=== PATIENT | female | born 1965 | race Caucasian/White ===

== ENCOUNTER 2017-06-30 07:10 | Inpatient (IN) | payer OTHER ==
[~2017-06-30] VITALS: Ht 162.6 cm; Wt 54.4 kg
[2017-06-30] MEDS ORDERED: IBUPROFEN 400 MG TABLET PO PRN (11:30)
[2017-06-30] MEDS ORDERED: LOPERAMIDE HCL 2 MG CAPSULE PO PRN ×2 (11:30)
[2017-06-30] MEDS ORDERED: diphenhydrAMINE 50 MG CAPSULE PO PRN (11:30)
[2017-06-30] MEDS ORDERED: ONDANSETRON ODT 4 MG TAB.RAPDIS SL PRN (11:30)
[2017-06-30] MEDS ORDERED: LORAZEPAM 2 MG/1 ML VIAL IM PRN (11:30)
[2017-06-30] MEDS ORDERED: ACETAMINOPHEN 325 MG TABLET PO PRN (11:30)
[2017-06-30] MEDS ORDERED: ONDANSETRON 4 MG/2 ML VIAL IM PRN (11:30)
[2017-06-30] MEDS ORDERED: LORAZEPAM 1 MG TABLET PO PRN ×2 (11:30)
[2017-06-30] MEDS ORDERED: MAG HYDROX/AL HYDROX/SIMETH 30 ML LIQUID UDC PO PRN (11:30)
[2017-06-30 12:00] VITALS: BP 131/90
--- NOTE | 2017-06-30 12:00 | NUR ---
Intake assessment; Patient is a 51 year old female AOX4, presented to [facility] to detoxify from ETOH. Patient flew in from [place] and arrived at intake office at approximately 1130. She is the primary source of information. Patient appears moderately intoxicated, patient appears hyper but easily retractible, patient is also cooperative. Patient reported allergies to penicillins and ibuprofen. Patient's current vital signs are as follows; BP 131/90, temperature 98.4, HR 90, Spo2 98%, denies pain at this time. Patient was educated regarding unit protocols and policies. Patient verbalized understanding. Will continue with further assessment when patient is up on the unit.
[2017-06-30] MEDS ORDERED: LEVO100T PO (12:06)
[2017-06-30] MEDS ORDERED: LIOT5TAB7 PO (12:06)
[2017-06-30 12:27] LABS: *AMPHETAMINE, URINE NEGATIVE (NEGATIVE); *BARBITURATE, URINE NEGATIVE (NEGATIVE); *CANNABINOID, URINE NEGATIVE (NEGATIVE); *COCCAINE, URINE NEGATIVE (NEGATIVE); *OPIATE, URINE NEGATIVE (NEGATIVE); *PHENCYCLIDINE SCREEN,URINE NEGATIVE (NEGATIVE)
[2017-06-30] MEDS ORDERED: THIAMINE HCL 200 MG/2 ML VIAL IM ONE (12:28)
[2017-06-30] MEDS ORDERED: [UNRECOGNIZED DRUG - OTHER] PO (12:28)
[2017-06-30 12:30] LABS: BILIRUBIN,TOTAL 0.6 mg/dL (0.2-1.0); CREATININE 0.8 mg/dL (0.6-1.3); MAGNESIUM 1.8 mg/dL (1.8-2.4); POTASSIUM 4.2 mmol/L (3.5-5.1); TOTAL PROTEIN, SERUM 8.5 g/dL (6.4-8.2)
[2017-06-30 12:43] LABS: BASOPHILS # (AUTO) 0.1 K/uL (0.0-8.0); BASOPHILS % (AUTO) 0.9 % (0.0-2.0); EOSINOPHILS # (AUTO) 0.1 K/uL (0.0-0.7); EOSINOPHILS % (AUTO) 0.9 % (0.0-7.0); HEMATOCRIT 44.4 % (37-47); HEMOGLOBIN 15.2 G/DL (12.0-16.0); LYMPHOCYTES # (AUTO) 1.6 K/UL (0.8-4.8); LYMPHOCYTES % (AUTO) 26.6 % (20.5-51.5); MEAN CORPUSCULAR HEMOGLOBIN 32.5 UUG (27.0-31.0); MEAN CORPUSCULAR HGB CONC 34 g/dL (32.0-37.0); MONOCYTES # (AUTO) 0.4 K/UL (0.1-1.30); MONOCYTES % (AUTO) 6.2 % (0.0-11.0); NEUTROPHILS % (AUTO) 65.4 % (38.5-71.5); PLATELET COUNT (AUTO) 254 K/UL (150-450); RED BLOOD CELL COUNT(AUTO) 4.67 MIL/UL (4.2-5.4); WHITE BLOOD COUNT (AUTO) 6.2 K/UL (4.0-11.2)
[2017-06-30 12:44] LABS: *URINE HCG, QUAL NEGATIVE (NEGATIVE)
--- NOTE | 2017-06-30 14:00 | NUR ---
Admission note; Patient is a 51 year old female AOX4, presented to [facility] to detoxify from ETOH. Patient flew in from [place] and arrived at intake office at approximately 1130. She is the primary source of information. Patient appears moderately intoxicated, patient appears hyper but easily redirected, patient is also cooperative. Patient reported allergies to penicillins and ibuprofen. Patient's current vital signs are as follows; BP 131/90, temperature 98.4, HR 90, Spo2 98%, denies pain at this time. Urine provided by patient for drug screen and thorough body and belonging check done along with COMMERCIAL LINES MANAGER. Discussed substance use history. Patient started drinking ETOH when she was 20 years old then progressed to daily consumption when she was 40 y/o. At this rate she is currently drinking 500ml to 1000ml of Vodka on a daily basis, last consumed today prior to admission. Medical and psych history discussed. Patient reported history of SVT, VT, hypothyroidism, eating disorder and anxiety. Patient reported that she just recently (more than 1 month ago) had a loop phototypesetting equipment monitor implanted on her left chest area, site is intact without any s/s of infection, MD is aware. Patient reported allergies to PCN and ibuprofen. Patient denies any history of seizures. Patient currently lives with her . she has never been to detox before. Her primary care physician is Dr. Chelsy Regalado. Current CIWA score is 3. Skin check done with no significant findings. Patient was seen and assessed by MD. Safety measures in place. Will closely monitor patient.
[2017-06-30 15:25] LABS: THYROID STIMULATING HORMONE 1.31 mIU/mL (0.358-3.740)
[2017-06-30 16:30] VITALS: BP 162/108
[2017-06-30] MEDS: LORAZEPAM 1 MG TABLET PO SCH ×2 (16:50→20:51)
[2017-06-30] MEDS: CLONIDINE HCL 0.1 MG TABLET PO PRN (16:51)
--- NOTE | 2017-06-30 16:51 | NUR ---
PRN medication; Patient's BP is elevated, 162/108 and HR of 103. Patient is also complaining of nausea. PRN Clonidine 0.1mg PO given for elevated BP and Zofran 4mg ODT for nausea. Will closely monitor patient. MD notified regarding patient's current condition.
[2017-06-30] MEDS ORDERED: METOPROLOL TARTRATE 50 MG TABLET PO ONE (17:00)
[2017-06-30] MEDS ORDERED: hydrALAZINE HCL 50 MG TABLET PO PRN (17:15)
--- NOTE | 2017-06-30 17:51 | NUR ---
Re-assessment; Patient denies nausea at this time. Patient's current BP is 135/86, HR 81. PRN medications are effective.
--- NOTE | 2017-06-30 18:42 | NUR ---
START OF SHIFT NOTE: Patient is a 51 year old female admitted to [facility] on 06/30/2017 for Alcohol dependence. Patient continues ordered 5 Day Ativan Taper which tolerated well without ASE. Patient remains compliant with treatment, medications, and diet regime. Patient reports Allergy to Penicillin and Ibuprofen. Patient is on Full Code, Regular Diet, Fall and Seizures Precautions. Patient denied history of withdrawal-induced seizures. Past Medical History: Anxiety, SVT and VT: cardiac loop monitor at bedside, Hypothyroidism, Eating disorder, Substance use disorder. Past Surgical history: Hysterectomy. History of Substance Use: "ETOH/Alcohol PO: Vodka 500-1,000 ml every day since 2014 at this rate. Last used 3 glasses of Vodka on 06/30/17". Patient reports - "first time in detox". Upon endorsement, patient is in her room alert and oriented x4 with stable gait. Speech is clear and soft. VSWNL, CIWA 7. Respirations are even and unlabored. Lungs Sounds are clear throughout. Patient denies cough, chest pain, and SOB. Patient reports history of SVT and VT: cardiac loop monitor at bedside. ECG ordered. Abdomen is soft, non-tender. Bowel Sounds are active in all four quadrants. Skin is intact, warm and dry to touch. Encouraged to fluids intake as tolerated. Encouraged to attend groups activities. All needs met. Safety measures in place: Call light within reach, bed is locked and in the lowest position, padded bed rails up bilaterally. Patient endorsed by outgoing day shift nurse. Report received.
--- NOTE | 2017-06-30 18:42 | NUR ---
End of shift note; Patient is AOX4. Patient was started on Ativan taper at 1700. Patient attended group therapy and activities. Patient remained compliant with treatment plan and medication regime. Medications were effective in reducing withdrawal symptoms. All safety measures secured. Met all needs.
[2017-06-30 20:00] VITALS: BP 116/87
[2017-07-01] VITALS: BP 114/81
[2017-07-01 04:00] VITALS: BP 114/81
--- NOTE | 2017-07-01 07:16 | NUR ---
END OF SHIFT NOTE: Patient is a 51 year old female admitted to [facility] on 06/30/2017 for Alcohol dependence. Patient continues ordered 5 Day Ativan Taper which tolerated well without ASE. Patient remains compliant with treatment, medications, and diet regime. Patient reports Allergy to Penicillin and Ibuprofen. Patient is on Full Code, Regular Diet, Fall and Seizures Precautions. Patient denied history of withdrawal-induced seizures. Past Medical History: Anxiety, SVT and VT: cardiac loop monitor at bedside, Hypothyroidism, Eating disorder, Substance use disorder. Past Surgical history: Hysterectomy. History of Substance Use: "ETOH/Alcohol PO: Vodka 500-1,000 ml every day since 2014 at this rate. Last used 3 glasses of Vodka on 06/30/17". Patient reports - "first time in detox. Last CIWA 5 . Last VS @0400: T 98.3, BP 114/81, HR 70, RA O2SAT 99%, RR 18, pain level "0/10". Respirations are even and unlabored. Lungs Sounds are clear throughout. Patient denies cough, chest pain, and SOB. Patient reports history of SVT and VT: cardiac loop monitor at bedside. ECG done as ordered.. Abdomen is soft, non-tender. Bowel Sounds are active in all four quadrants. Skin is intact, warm and dry to touch. Patient slept 8 hours, intake 1,535 ml, voided x3. No PRN Medications administrated during shift mechanic. Encouraged fluids intake as tolerated. Encouraged to attend groups activities. All needs met. Safety measures on place: Call light within reach, bed in lowest position and locked, padded rails up bilaterally. Patient endorsed to day shift nurse. Report given.
[2017-07-01 08:44] VITALS: BP 115/87
[2017-07-01] MEDS ORDERED: TUBERCULIN,PURIF.PROT.DERIV. 5 TU/0.1 ML TEST ID ONE (09:00)
[2017-07-01] MEDS: MULTIVITAMINS,THERAPEUTIC TABLET PO SCH (09:20)
[2017-07-01] MEDS: THIAMINE HCL 100 MG TABLET PO SCH (09:20)
[2017-07-01] MEDS: FOLIC ACID 1 MG TABLET PO SCH (09:21)
--- NOTE | 2017-07-01 09:25 | NUR ---
Administration of tuberculin skin test at this time subcutaneously in the left upper arm. Addendum: 07/01/17 at 0941 by REESE KING RN Amended: Links added.
[2017-07-01] MEDS: LORAZEPAM 1 MG TABLET PO SCH ×3 (09:31→21:22)
[2017-07-01 10:07] LABS: HEPATITIS B SURFACE AG Negative (Negative)
[2017-07-01 12:51] VITALS: BP 135/89
--- NOTE | 2017-07-01 13:17 | NUR ---
Therapist prompted client to attend group today. Client agreed to attend group,
--- NOTE | 2017-07-01 15:43 | NUR ---
Patient says, "I feel drunk on this stuff," as marketing underwriter passed medication (Ativan). "I want to go out and talk to people. Can I go to the patio? I don't smoke." Crystalizer Tender conferred with unit nurses and unit nurses note patient was on no restrictions. Patient went out to the patio afterward.
[2017-07-01] MEDS: PATIENT MAY USE OWN MED- MD OK PO SCH ×2 (16:43→16:44)
[2017-07-01 17:43] VITALS: BP 122/87
--- NOTE | 2017-07-01 19:05 | NUR ---
Handoff report to night nurse .
--- NOTE | 2017-07-01 19:30 | NUR ---
Start of Shift Patient is a 51 year old female admitted to [facility] on 06-30-17 for ETOH detox. She is a full code on a reular diet with allergies to PCN and Ibuprofen. Patient is on a five day ativan taper. She is on fall and seizure precautions. PMH of SVT, Hypothyroidism, Eating disorder, and anxiety. Skin is intact. LAst CIWA reported as a 0 by day shift nurse. Vital signs are stable. Safety precautions in place. BEd locked and in lowest position with 2 side rails up for safety.
[2017-07-01 20:00] VITALS: BP 121/92
[2017-07-02] VITALS: BP 128/96
[2017-07-02 04:00] VITALS: BP 124/79
--- NOTE | 2017-07-02 04:00 | NUR ---
CIWA deferred CIWA deferred at 0400 due to sleep.
--- NOTE | 2017-07-02 06:48 | NUR ---
End of shift Patient is a 51 year old female admitted to [facility] on 06-30-17 for ETOH detox. She is a full code on a regular diet with allergies to PCN and Ibuprofen. Patient is on a five day ativan taper. She is on fall and seizure precautions. PMH of SVT, Hypothyroidism, Eating disorder, and anxiety. Patient with implanted cardiac loop monitor. Skin is intact. Vital signs are stable. Safety precautions in place. Patient VS at 2000 BP 121/92, P 86, R 16, SPO2 98% on RA, T 98.6. CIWA 2. Vital signs at 0000 BP 128/96, P 85, R 16, SPO2 99% on RA, T 98.1. CIWA 2. Vital signs at 0400: BP 124/79, P 82, R 14, SPO2 99% on RA, T 98.3. CIWA deferred for sleep. Slept a total of 8 hours. Intake 1360 ml, output 4 voids. Patient with no noted physical complaints. Bed locked and in lowest position with 2 side rails up for safety. Report given to AM nurse.
--- NOTE | 2017-07-02 07:00 | NUR ---
Start of Shift Report from the night nurse: ptis a 51 y/o female here for Etoh r/t 500-1000mg of vodka daily for 2 years; 5 day Ativan taper ordered. Pt is a full code, regular diet, allergic to PCN and Ibuprofen, fall and seizure precautions ordered. HHx: SVT & VT with AICD implanted on UL Chest with a loop monitor at the bedside, Hypothyroidism, eating d/o, anxiety. V/S stable. EKG done on admission with NSR. This is the first time doing detox. Skin is intact. No PRN Medications given last night. No new orders or abnormal labs endorsed to me. Last CIWA 2. Pt is in room asleep. Will cont. to monitor the pt.
[2017-07-02 08:00] VITALS: BP 135/93
[2017-07-02] MEDS: THIAMINE HCL 100 MG TABLET PO SCH (08:29)
[2017-07-02] MEDS: FOLIC ACID 1 MG TABLET PO SCH (08:29)
[2017-07-02] MEDS: MULTIVITAMINS,THERAPEUTIC TABLET PO SCH (08:29)
[2017-07-02] MEDS: PATIENT MAY USE OWN MED- MD OK PO SCH ×2 (08:30)
[2017-07-02] MEDS ORDERED: LORAZEPAM 1 MG TABLET PO SCH ×2 (09:00→21:00)
[2017-07-02 12:00] VITALS: BP 126/82
[2017-07-02] MEDS: LORAZEPAM 1 MG TABLET PO SCH ×2 (13:29→16:53)
[2017-07-02] MEDS: CLONIDINE HCL 0.1 MG TABLET PO PRN (14:57)
--- NOTE | 2017-07-02 14:58 | NUR ---
PRN Medication Administration Pt is in room with tremors and c/o anxiety, pt denies chest pain, BP 134/84 HR 89; PRN CLonidine 0.1mg given as ordered. Will reassess in 1H. Addendum: 07/02/17 at 1747 by IMANI BRIONES RN Initial dose so medication actions and SE's discussed with the pt and printed education material given.
[2017-07-02 16:00] VITALS: BP 121/87
--- NOTE | 2017-07-02 16:00 | NUR ---
Reassessment Pt is resting in bed and watching a football game and states that the anxiety and tremors have decreased, BP 121/87 HR 84; PRN Clonidine is effective. Will cont. to monitor the pt.
--- NOTE | 2017-07-02 19:02 | NUR ---
End of Shift Report to the night nurse: pt is a 51 y/o female here for Etoh r/t 500-1000mg of vodka daily for 2 years; 5 day Ativan taper ordered. Pt is a full code, regular diet, allergic to PCN and Ibuprofen, fall and seizure precautions ordered. HHx: SVT & VT with AICD implanted on UL Chest with a loop monitor at the bedside, Hypothyroidism, eating d/o, anxiety. V/S stable. EKG done on admission with NSR. This is the first time doing detox. Pt denies chest pain and no SOB during my shift, V/S stable. PRN Clonidine 0.1mg given today for anxiety and was effective with stable BP and HR. New Order for PRN Vistaril with none given during my shift, education handouts given. Pt denies dysuria. No BM during my shift with last BM yesterday. No abnormal labs during my shift. Pt attended group therapy and activities today. Last CIWA 8.
--- NOTE | 2017-07-02 19:15 | NUR ---
Start of shift note Received report from day shift nurse. Pt is a 51 yo female, A+Ox4, presenting to [facility] for ETOH dependence. Pt has Allergies to PCN and ibuprofen, is on Full code status, and on Regular diet. Pt is on Fall and Seizure precautions. Pt has HX of SVT, VT, Hypothyroidism, eating disorder, and anxiety. Pt is on 5 day Ativan taper, tolerated well. No s/s of distress noted at this time. Respirations even and unlabored. Will continue to monitor.
[2017-07-02 20:45] VITALS: BP 133/94
[2017-07-03 00:35] VITALS: BP 131/90
[2017-07-03 04:35] VITALS: BP 124/88
--- NOTE | 2017-07-03 06:55 | NUR ---
End of shift note Pt is a 51 yo female, A+Ox4, presenting to [facility] for ETOH dependence. Pt has Allergies to PCN and ibuprofen, is on Full code status, and on Regular diet. Pt is on Fall and Seizure precautions. Pt has HX of SVT, VT, Hypothyroidism, eating disorder, and anxiety. Pt is on 5 day Ativan taper, tolerated well. Pt slept fora total of 9 HRS. Last CIWA: 2 @0400. No s/s of distress noted at this time. Respirations even and unlabored. Will endorse to day shift nurse.
--- NOTE | 2017-07-03 07:30 | NUR ---
START OF SHIFT Pt is a 51 yr old female, AA&Ox4. pt was admitted on 06/30/17 for ETOH Dependence and is on 5 day Ativan taper as ordered. Medication emre well. Received report from rn shift mgr nurse. No PRN's were given during the night. Pt slept for 9 hrs. Last CIWA score was 2 at 0400. Pt denies any anxiety or agitation at this time. Pt states, "I feel good so far" Skin is intact, warm and dry to touch. No tremors seen or felt. Pt denies any n/v. Safety precautions observed. Encouraged increase fluid intake. Call light is within reach. Will continue to monitor.
[2017-07-03 08:00] VITALS: BP 119/84
[2017-07-03] MEDS: LORAZEPAM 1 MG TABLET PO SCH ×3 (08:20→21:09)
[2017-07-03] MEDS: PATIENT MAY USE OWN MED- MD OK PO SCH ×2 (08:20)
[2017-07-03] MEDS: THIAMINE HCL 100 MG TABLET PO SCH (08:20)
[2017-07-03] MEDS: MULTIVITAMINS,THERAPEUTIC TABLET PO SCH (08:21)
[2017-07-03] MEDS: FOLIC ACID 1 MG TABLET PO SCH (08:21)
[2017-07-03 12:00] VITALS: BP 126/96
[2017-07-03] MEDS: CLONIDINE HCL 0.1 MG TABLET PO PRN (12:29)
--- NOTE | 2017-07-03 12:29 | NUR ---
PRN GIVEN Pt c/o increase anxiety. Clonidine 0.1mg PO PRN was given as ordered. Encouraged increase fluid intake. Will continue to monitor.
--- NOTE | 2017-07-03 13:30 | NUR ---
PRN RE-ASSESSMENT Clonidine 0.1mg PO PRN was effective. Pt denies any anxiety or agitation at this time. Will continue to monitor.
[2017-07-03 16:00] VITALS: BP 122/80
--- NOTE | 2017-07-03 19:02 | NUR ---
END OF SHIFT Pt is a 51 yr old female, AA&Ox4. pt was admitted on 06/30/17 for ETOH Dependence and is on 5 day Ativan taper as ordered. Medication emre well. Pt has been cooperative with medication regimen and plan of care. Pt attended group sessions. Pt received Clonidine PRN during the day for anxiety. Medication was effective. Last CIWA score was 6 at 1600. Pt is c/o mild anxiety but is able to cope with anxiety level. Skin is intact, warm and moist to touch. Fine tremors are seen. Pt denies any n/v. Encouraged increase fluid intake. Safety precautions observed. Call light is within reach.
--- NOTE | 2017-07-03 19:05 | NUR ---
Start of Shift Patient is a 51 year old female admitted to [facility] on 06-30-17 for ETOH detox. She is a full code on a regular diet with allergies to PCN and Ibuprofen. Patient is on a five day Ativan taper. She is on fall and seizure precautions. PMH of SVT, Hypothyroidism, eating disorder, and anxiety. Skin is intact. Last CIWA 6 at 1600. Vital signs are stable. Safety precautions in place. Bed locked and in lowest position with 2 side rails up for safety. Report received from AM nurse
[2017-07-03 20:00] VITALS: BP 123/85
[2017-07-04 00:21] VITALS: BP 125/85
--- NOTE | 2017-07-04 04:05 | NUR ---
CIWA DEFERRED/ VITAL SIGNS REFUSED PATIENT REFUSED 0400 VITAL SIGNS CIWA DEFERRED FOR SLEEP
[2017-07-04] MEDS: PATIENT MAY USE OWN MED- MD OK PO SCH ×2 (06:21)
--- NOTE | 2017-07-04 06:47 | NUR ---
End of shift Patient is a 51 year old female admitted to [facility] on 06-30-17 for ETOH detox. She is a full code on a regular diet with allergies to PCN and Ibuprofen. Patient is on a five day Ativan taper. She is on fall and seizure precautions. She has PMH of SVT, Hypothyroidism, Eating disorder, and Anxiety. Patient with implanted cardiac loop monitor. Skin is intact. Vital signs are stable. Safety precautions in place. Patient VS at 2000 BP123/85, P 75, R 16, SPO2 99% on RA, T 98.7. CIWA 2. Vital signs at 0000 BP 125/85, P 69, R 20 SPO2 97% on RA, T 98.5. CIWA 1.Slept a total of 8 hours. Intake 855 ml, output 2 voids 1 BM. Patient with no noted physical complaints. Bed locked and in lowest position with 2 side rails up for safety. Report given to AM nurse.
--- NOTE | 2017-07-04 07:58 | NUR ---
Start of shift note; Received report from night nurse. Patient is a 51 year old female admitted on 06/30/17 for ETOH dependence. Patient was placed on Ativan taper, no adverse reactions noted. Patient reported history of SVT, VT with cardiac loop monitor in place, hypothyroidism, eating disorder and anxiety. Patient reported allergies to PCN and ibuprofen. Patient is on fall and seizure precaution. Bed in lowest position, call light within reach. Will continue to monitor patient.
[2017-07-04 08:00] VITALS: BP 124/90
[2017-07-04] MEDS: MULTIVITAMINS,THERAPEUTIC TABLET PO SCH (08:49)
[2017-07-04] MEDS: THIAMINE HCL 100 MG TABLET PO SCH (08:49)
[2017-07-04] MEDS: LORAZEPAM 1 MG TABLET PO SCH ×2 (08:49→20:24)
[2017-07-04] MEDS: FOLIC ACID 1 MG TABLET PO SCH (08:49)
--- NOTE | 2017-07-04 09:10 | NUR ---
MD communication; Patient reported burning chest pain rated 8/10 on pain scale lasted for about 5 minutes. Patient started feeling burning chest pain while she was eating her breakfast. Breathing techniques was effective per patient. Vital signs are as follows; BP 148/96, Spo2 100% on room air, HR 86, respirations 18. MD was immediately notified. Patient to be monitored closely. No new MD orders at this time. Instructed patient to notify staff immediately if she experience any chest pain, call light within reach.
[2017-07-04 12:00] VITALS: BP 136/88
[2017-07-04 12:34] VITALS: BP 138/98
[2017-07-04] MEDS: CLONIDINE HCL 0.1 MG TABLET PO PRN (12:35)
--- NOTE | 2017-07-04 12:35 | NUR ---
PRN medication; Patient's BP noted to be elevated 132/98, HR 72. PRN Clonidine 0.1mg PO given as ordered. Will continue to monitor patient.
--- NOTE | 2017-07-04 13:35 | NUR ---
Re-assessment; Patient is AOX4. Current BP is 128/72. PRN medication noted to be effective.
--- NOTE | 2017-07-04 15:30 | NUR ---
Ativan held; Patient appears to be sedated, BP of 98/58, HR 52 and respirations of 18. Ativan dose for 1500 was held due to sedation. MD was notified. Will continue to monitor patient. Addendum: 07/04/17 at 1803 by HARSHAD RODRÍGUEZ LVN DISREGARD ABOVE CHARTING. WRONG PATIENT DOCUMENTATION.
[2017-07-04 16:00] VITALS: BP 133/83
[2017-07-04] MEDS: HYDROXYZINE PAMOATE 25 MG CAPSULE PO PRN (18:16)
--- NOTE | 2017-07-04 18:18 | NUR ---
PRN medication; Patient is AOx4. Patient appears very anxious, pacing back and forth in the hallway. Redirected patient as needed. PRN Vistaril 25mg PO given as ordered.
--- NOTE | 2017-07-04 18:48 | NUR ---
End of shift note; Patient is AOx4. Patient is a 51 year old female admitted on 06/30/17 for ETOH dependence. Patient was placed on Ativan taper, no adverse reactions noted. Patient reported history of SVT, VT with cardiac loop monitor in place, hypothyroidism, eating disorder and anxiety. Patient reported allergies to PCN and ibuprofen. Patient is on fall and seizure precaution. Patient remained compliant with treatment plan and medication regime. Medications were effective in reducing withdrawal symptoms. Met all needs.
--- NOTE | 2017-07-04 19:17 | NUR ---
Re-assessment; Patient appears calm and comfortable at this time. PRN medication noted to be effective.
--- NOTE | 2017-07-04 19:25 | NUR ---
Start of Shift Patient is a 51 year old female admitted to [facility] on 06-30-17 for ETOH detox. She is a full code on a regular diet with allergies to PCN and Ibuprofen. Patient is on a five day Ativan taper. She is on fall and seizure precautions. PMH of SVT, Hypothyroidism, eating disorder, and anxiety. Skin is intact. Last CIWA 3 at 1600. EKG completed on AM shift after episode of chestpain. EKG reviewed by MD with no significant findings. No further episodes of CP noted. Vital signs are stable. Safety precautions in place. Bed locked and in lowest position with 2 side rails up for safety. Report received from AM nurse
[2017-07-04 20:00] VITALS: BP 141/99
[2017-07-04] MEDS: MIRALAX 17 GM POWD.PACK PO PRN (20:23)
--- NOTE | 2017-07-04 20:23 | NUR ---
PRN medication Miralax 17 gm administered at 2022 for c/o constipation. Effect pending.
[2017-07-04] MEDS: GABAPENTIN 300 MG CAPSULE PO SCH (20:24)
--- NOTE | 2017-07-04 21:23 | NUR ---
reassessment of patient reassessment of patient one hour after miralax 17 gm PO administered for constipation. No BM as of late noted. Bowel sounds active all quadrants. Abdomen soft/non tender without pain noted.
[2017-07-05] VITALS: BP 99/62
--- NOTE | 2017-07-05 | NUR ---
0000 CIWA deferred for sleep
[2017-07-05 04:00] VITALS: BP 111/81
--- NOTE | 2017-07-05 04:00 | NUR ---
0400 CIWA deferred for sleep
[2017-07-05] MEDS: PATIENT MAY USE OWN MED- MD OK PO SCH ×2 (06:24)
--- NOTE | 2017-07-05 06:51 | NUR ---
End of shift Patient is a 51 year old female admitted to [facility] on 06-30-17 for ETOH detox. She is a full code on a regular diet with allergies to PCN and Ibuprofen. Patient is on a five day Ativan taper. She is on fall and seizure precautions. She has PMH of SVT, Hypothyroidism, Eating disorder, and Anxiety. Patient with implanted cardiac loop monitor. Skin is intact. Safety precautions in place. Patient VS at 2000 BP 141/99, P 85, R 18, SPO2 99% on RA, T 97.9. CIWA 3. Vital signs at 0000 BP 99/62, P 70, R 14, SPO2 97% on RA, T 98.2. VS at 0400 BP 111/81, P 86, R 16, SPO2 98% on RA, T 98.1. CIWA deferred for sleep. Slept a total of 7 hours. Intake 750 ml, output 2 voids 1 BM. Patient received Miralax 17 gm for constipation with effectiveness of 1 small BM. Bed locked and in lowest position with 2 side rails up for safety. Report given to AM nurse.
[2017-07-05 08:00] VITALS: BP 123/81
--- NOTE | 2017-07-05 08:07 | NUR ---
Start of shift note; Received report from night nurse. Patient is a 51 year old female admitted on 06/30/17 for ETOH dependence. Patient was placed on Ativan taper, no adverse reactions noted. Patient reported history of SVT, VT with cardiac loop monitor in place, hypothyroidism, eating disorder and anxiety. Patient reported allergies to PCN and ibuprofen. Patient's last CIWA is 3 at 2000. Patient is on fall and seizure precaution. Bed in lowest position, call light within reach. Will continue to monitor patient.
[2017-07-05] MEDS: MULTIVITAMINS,THERAPEUTIC TABLET PO SCH (08:57)
[2017-07-05] MEDS: FOLIC ACID 1 MG TABLET PO SCH (08:57)
[2017-07-05] MEDS: THIAMINE HCL 100 MG TABLET PO SCH (08:57)
[2017-07-05] MEDS: GABAPENTIN 300 MG CAPSULE PO SCH ×2 (08:57→21:44)
[2017-07-05] MEDS ORDERED: LORAZEPAM 1 MG TABLET PO SCH (09:00)
[2017-07-05 12:00] VITALS: BP 138/99
[2017-07-05] MEDS: CLONIDINE HCL 0.1 MG TABLET PO PRN (12:18)
--- NOTE | 2017-07-05 12:20 | NUR ---
PRN medication; Patient's BP noted to be elevated 138/99, HR 80. PRN Clonidine 0.1mg PO given for BP over 140/90. Will continue to monitor to patient.
--- NOTE | 2017-07-05 13:20 | NUR ---
Re-assessment; Patient is AOX4. Patient's BP is 106/64, HR 78. PRN Clonidine noted to be effective.
[2017-07-05] MEDS: HYDROXYZINE PAMOATE 25 MG CAPSULE PO PRN (15:15)
--- NOTE | 2017-07-05 15:15 | NUR ---
PRN medication; Patient appears to be anxious manifested by patient pacing back and forth in the hallway , patient is crying. Non pharmacological relaxation techniques ineffective. PRN Vistaril 25mg PO given for anxiety. Will continue to monitor patient.
[2017-07-05 16:00] VITALS: BP 126/95
--- NOTE | 2017-07-05 16:15 | NUR ---
Re-assessment; Patient appears calm and comfortable. PRN medication noted to be effective.
--- NOTE | 2017-07-05 17:03 | NUR ---
Therapist prompted client to attend daily group sessions, and client stated that she would attend.
--- NOTE | 2017-07-05 18:24 | NUR ---
End of shift note; Patient is AOX4. Patient is a 51 year old female admitted on 06/30/17 for ETOH dependence. Patient was placed on Ativan taper, no adverse reactions noted. Patient reported history of SVT, VT with cardiac loop monitor in place, hypothyroidism, eating disorder and anxiety. Patient reported allergies to PCN and ibuprofen. Patient remained compliant with treatment plan and medication regime. Medications were effective in reducing withdrawal symptoms. All safety measures secured. Met all needs.
--- NOTE | 2017-07-05 19:24 | NUR ---
Start of Shift Patient is a 51 year old female admitted to [facility] on 06-30-17 for ETOH detox. She is a full code on a regular diet with allergies to PCN and Ibuprofen. Patient has completed a five day Ativan taper. She is on fall and seizure precautions. PMH of SVT, Hypothyroidism, eating disorder, and anxiety. Skin is intact. Last CIWA 2 at 1600. Vital signs are stable. Safety precautions in place. Bed locked and in lowest position with 2 side rails up for safety. Report received from AM nurse
[2017-07-05 20:00] VITALS: BP 134/92
[2017-07-05] MEDS ORDERED: GABA-534 PO (20:09)
[2017-07-05] MEDS ORDERED: DIPH50CA37 PO (20:09)
[2017-07-05] MEDS ORDERED: LEVO100T PO (20:09)
[2017-07-05] MEDS ORDERED: HYDR-3895 PO (20:09)
[2017-07-05] MEDS ORDERED: LIOT5TAB7 PO (20:09)
[2017-07-05] MEDS: MIRALAX 17 GM POWD.PACK PO PRN (21:48)
--- NOTE | 2017-07-05 21:53 | NUR ---
PRN medication Benadryl 50 mg PO administered for sleeplessness. Effect pending Miralax 17 gm PO admnistered in 8 oz juice for c/o constipation. Effect pending.
--- NOTE | 2017-07-05 22:53 | NUR ---
Reassessment of patient Patient reassessed one hour after PRN benadryl administered for sleep. Good effect noted. Patient with eyes closed resting comfortably in bed.
--- NOTE | 2017-07-05 23:23 | NUR ---
Reassessment of patient Reasssessment of patient one hour after PRN miralax administered for Constipation. No effect noted as of late.
[2017-07-06] VITALS: BP 125/88
--- NOTE | 2017-07-06 | NUR ---
0000 CIWA deferred for sleep
[2017-07-06 04:00] VITALS: BP 123/82
--- NOTE | 2017-07-06 04:00 | NUR ---
VITAL SIGNS REFUSED/CIWA DEFERRED 0 VITAL SIGNS REFUSED CIWA DEFERRED PATIENT IS ASLEEP. Addendum: 07/06/17 at 0531 by RISSA ENGLAND RN WRONG INFORMATION VITAL SIGNS OBTAINED FOR 0400 CIWA DEFERRED FOR SLEEP
[2017-07-06] MEDS: PATIENT MAY USE OWN MED- MD OK PO SCH ×2 (06:19→06:20)
--- NOTE | 2017-07-06 06:48 | NUR ---
End of shift Patient is a 51 year old female admitted to [facility] on 06-30-17 for ETOH detox. She is a full code on a regular diet with allergies to PCN and Ibuprofen. Patient completed a five day Ativan taper. She is on fall and seizure precautions. She has PMH of SVT, Hypothyroidism, Eating disorder, and anxiety. Patient with implanted cardiac loop monitor. Skin is intact. Safety precautions in place. Patient VS at 2000 BP 134/92, P 73, R 16, SPO2 98% on RA, T 97.8. CIWA 1. Patient received Benadryl 50 mg PO for sleep with good effect and Miralax 17 gm for constipation with no noted BM as of late. Abdomen soft, non tender with active Bowel sounds in all quadrants. Vital signs at 0000 BP 125/88, P 70, R 14, SPO2 99% on RA, Temp deferred for sleep. CIWA deferred for sleep. 0400 VS BP 123/82, P 68, R 16, SPO2 98% on RA, T 98.1. CIWA deferred for sleep. Slept a total of 6 hours. Intake 605ml, output 3 voids. Bed locked and in lowest position with 2 side rails up for safety. Report given to AM nurse.
--- NOTE | 2017-07-06 08:09 | NUR ---
BEGINNING OF SHIFT Patient endorsement report received from retail shift manager nurse, all pertinent information discussed. Patient is a 51 year old Female admitted on: 06/30/2017 with admitting Dx: etoh dependence. Patient currently completed 5 day Ativan taper as ordered. Medications well tolerated. Per retail shift manager patient received PRN: Benadryl and Miralax during shift. Patient with last ciwa score of: 1. Patient slept for 6 hours. Patient received awake, alert and oriented x4, educated patient regarding plan of care for the day and medication regimen with good verbal understanding. Patient is scheduled to be discharged this morning, will educate patient regarding all discharge instructions. Safety masques in place. call light kept with in reach, Fall and seizure precautions in place. will continue to monitor closely.
[2017-07-06 08:15] VITALS: BP 118/78
[2017-07-06] MEDS: THIAMINE HCL 100 MG TABLET PO SCH (09:12)
[2017-07-06] MEDS: GABAPENTIN 300 MG CAPSULE PO SCH (09:12)
[2017-07-06] MEDS: MULTIVITAMINS,THERAPEUTIC TABLET PO SCH (09:12)
[2017-07-06] MEDS: FOLIC ACID 1 MG TABLET PO SCH (09:12)
--- NOTE | 2017-07-06 09:30 | NUR ---
DISCHARGE Patient discharged off the unit 0930, prior to discharge patient was educated and provided with teaching regarding all discharge instructions with good verbal understanding. Patient noted self motivated towards sobriety. no s/sx of withdrawal, last ciwa score of: 0. vital signs WNL. Patients home medications, and discharge instructions were placed in patients personal duffel bag. Prescriptions transmitted by MD to RX. Patient off the unit at 0930 in stable condition.
== END 2017-07-06 09:30 | disposition other institution (70) | DRG 895 ==
LOC: SRC 10:20
PROVIDERS: ADMIT Internal Medicine; ATTEND Internal Medicine
PROC: HZ2ZZZZ Detoxification Services for Substance Abuse Treatment (ICD-10-PCS; principal; 2017-06-30)
PROC: HZ41ZZZ Group Counseling for Substance Abuse Treatment, Behavioral (ICD-10-PCS; principal; 2017-06-30)
DX: F10.230 Alcohol dependence with withdrawal, uncomplicated (principal); K70.10 Alcoholic hepatitis without ascites; F50.9 Eating disorder, unspecified; I15.9 Secondary hypertension, unspecified; I47.1 Supraventricular tachycardia; E03.9 Hypothyroidism, unspecified; F10.220 Alcohol dependence with intoxication, uncomplicated; Y90.7 Blood alcohol level of 200-239 mg/100 ml; Z81.1 Family history of alcohol abuse and dependence; Z88.6 Allergy status to analgesic agent; Z88.0 Allergy status to penicillin; F41.9 Anxiety disorder, unspecified; Z95.818 Presence of other cardiac implants and grafts
CPT/HCPCS: 36415; 70030-TC; 80307; 83735; 84443; 84703; 85025; 86580; 86592; 86705; 86803; 87340; 87806; 93005; G0480; J3411; Q0162; Q0163